=== PATIENT | female | born 1995 | race Caucasian/White ===

== ENCOUNTER 2016-11-12 09:04 | Emergency (ER) | payer OTHER ==
[~2016-11-12] VITALS: Ht 165.1 cm; Wt 90.7 kg
[~2016-11-12 09:04] MED LIST: AMOXICILLIN,AM875 MG PO; AMOXIL875 MG PO; AUGMENTIN XR1000 M1 PO; BACTRIM DS 8001 TA1 PO; CEFDINIR300 MG PO; COMPAZINE10 M1 PO; FLEXERIL10 MG PO; HYDROCODONE BIT1 T11 PO; KEFLEX500 MG PO; MACROBID100 M1 PO; MOTRIN800 MG PO; MYCOLOG-II 10001 CRE TP; NKHM; PERCOCET 325 MG1 TA7 PO; PREDNICOT20 MG PO; PREDNISONE10 MG PO; PRENATAL1 TA3 PO; TESSALON PERLE200 MG PO; ULTRAM50 MG PO; VIBRAMYCIN100 MG PO; VICODIN 5/500 505 MG PO; ZITHROMAX250 MG PO
[2016-11-12 09:08] VITALS: BP 130/70
[2016-11-12 09:45] LABS: BASO % 0.2 % (0.0-1.0); EOS # 0.1 10*3/uL (0.0-0.4); EOS % 0.5 % (1.0-4.0); HEMATOCRIT 39.9 % (37.0-47.0); HEMOGLOBIN 12.8 g/dl (12.0-16.0); LYMPH # 1.3 10*3/uL (1.3-4.4); LYMPH % 10.4 % (27.0-41.0); MEAN CELL VOLUME 87.1 fl (81.0-99.0); MEAN CORPUSCULAR HGB 27.9 pg (27.0-31.0); MEAN CORPUSCULAR HGB CONC 32.1 g/dl (33.0-37.0); MEAN PLATELET VOLUME 11.5 fl (9.6-12.3); MONO # 0.8 10*3/uL (0.1-1.0); MONO % 6.3 % (3.0-9.0); NEUT # 10.2 10*3/uL (2.3-7.9); NEUT % 82.3 % (47.0-73.0); PLATELET COUNT AUTOMATED 235 10*3/uL (130-400); RED BLOOD COUNT 4.58 10*6/uL (4.10-5.10); RED CELL DISTRI WIDTH 15.9 % (0-14.5); WHITE BLOOD COUNT 12.4 10*3/uL (4.8-10.8)
[2016-11-12 10:00] LABS: ALBUMIN 3.2 gm/dl (3.1-4.5); ALKALINE PHOSPHATASE 141 U/L (45-117); BILIRUBIN, TOTAL 0.4 mg/dl (0.2-1.0); BUN 5 mg/dl (7-24); CARBON DIOXIDE 26 mmol/L (21-32); CHLORIDE 104 mmol/L (98-107); EST GLOM FILT AFRICAN AMERICAN > 60 ml/min; GLUCOSE 95 mg/dL (65-99); POTASSIUM 3.9 mmol/L (3.5-5.1); SGOT/AST 78 IU/L (3-35); SGPT/ALT 94 U/L (12-78); SODIUM 138 mmol/L (136-145); TOTAL PROTEIN 7.8 gm/dL (6.4-8.2)
[2016-11-12] MEDS ORDERED: FLOMAX0.4 MG PO ×2 (11:24→11:25)
[2016-11-12] MEDS ORDERED: LEVAQUIN750 M1 PO (11:25)
== END 2016-11-12 11:39 | disposition home or self-care (01) ==
LOC: ED 09:04
PROVIDERS: Registered Nurse
DX: N12 Tubulo-interstitial nephritis, not specified as acute or chronic (principal); N20.0 Calculus of kidney; N93.9 Abnormal uterine and vaginal bleeding, unspecified; R94.5 Abnormal results of liver function studies; F17.200 Nicotine dependence, unspecified, uncomplicated

== ENCOUNTER 2017-01-02 13:06 | Emergency (ER) | payer OTHER ==
[~2017-01-02] VITALS: Ht 165.1 cm; Wt 90.7 kg
[~2017-01-02 13:06] MED LIST changes: +FLOMAX0.4 MG PO; +LEVAQUIN750 M1 PO
[2017-01-02 13:45] VITALS: BP 131/71
[2017-01-02] MEDS ORDERED: CORTISPORIN SUS10 ML OT (14:10)
== END 2017-01-02 14:22 | disposition home or self-care (01) ==
LOC: ED 13:06
DX: H60.92 Unspecified otitis externa, left ear (principal); R03.0 Elevated blood-pressure reading, without diagnosis of hypertension; J45.909 Unspecified asthma, uncomplicated; F17.200 Nicotine dependence, unspecified, uncomplicated

== ENCOUNTER 2017-02-04 11:49 | Emergency (ER) | payer OTHER ==
[~2017-02-04] VITALS: Ht 165.1 cm; Wt 90.7 kg
[~2017-02-04 11:49] MED LIST changes: +CORTISPORIN SUS10 ML OT
[2017-02-04 12:06] VITALS: BP 124/88
[2017-02-04] MEDS ORDERED: Motrin,Rufen800 MG PO (13:36)
[2017-02-04] MEDS ORDERED: CYCLOBENZAPRINE5 M3 PO (13:36)
== END 2017-02-04 13:40 | disposition home or self-care (01) ==
LOC: ED 11:49
DX: M54.16 Radiculopathy, lumbar region (principal); F17.200 Nicotine dependence, unspecified, uncomplicated

== ENCOUNTER 2018-12-05 22:05 | Emergency (ER) | payer OTHER ==
[~2018-12-05] VITALS: Ht 165.1 cm; Wt 73.7 kg
[~2018-12-05 22:05] MED LIST changes: +CYCLOBENZAPRINE5 M3 PO; +Motrin,Rufen800 MG PO
[2018-12-05 22:08] VITALS: BP 121/80
[2019-03-10] MEDS ORDERED: ZITHROMAX250 MG PO (20:08)
[2019-03-10] MEDS ORDERED: FLAGYL500 MG PO (20:08)
== END 2018-12-06 00:48 | disposition home or self-care (01) ==
LOC: ED 22:05
DX: S40.022A Contusion of left upper arm, initial encounter (principal); R07.81 Pleurodynia; F17.200 Nicotine dependence, unspecified, uncomplicated; W18.49XA Other slipping, tripping and stumbling without falling, initial encounter; Y93.89 Activity, other specified; Y92.89 Other specified places as the place of occurrence of the external cause; Y99.9 Unspecified external cause status

== ENCOUNTER 2019-03-07 09:39 | Emergency (ER) | payer OTHER ==
[~2019-03-07] VITALS: Ht 165.1 cm; Wt 72.6 kg
[2019-03-07 09:42] VITALS: BP 119/71
[2019-03-07 10:31] LABS: BILIRUBIN NEGATIVE (NEGATIVE); BLOOD NEGATIVE (NEGATIVE); CLARITY SL CLOUDY (CLEAR); COLOR YELLOW (YELLOW); GLUCOSE NEGATIVE (NEGATIVE); KETONE NEGATIVE (NEGATIVE); LEUKO ESTERASE 1+ (NEGATIVE); NITRITE NEGATIVE (NEGATIVE); PH 6.5 (5.0-9.0); SPECIFIC GRAVITY <= 1.005 (1.005-1.030); UROBILINOGEN 0.2 E.U./dl (0.2-1.0)
[2019-03-07 10:40] LABS: BACTERIA 1+; EPITHELIAL CELLS 16-20; WBC 21-30 wbc/hpf (0-5)
[2019-03-07] MEDS ORDERED: OMNICEF300 MG PO (10:48)
[2019-03-10 15:08] LABS: GONOCOCCUS BY NAA Positive (Negative)
[2019-03-10] MEDS ORDERED: ZITHROMAX250 MG PO (20:08)
[2019-03-10] MEDS ORDERED: FLAGYL500 MG PO (20:08)
== END 2019-03-07 10:54 | disposition home or self-care (01) ==
LOC: ED 09:39
PROVIDERS: Nurse Practitioner Family
DX: J02.9 Acute pharyngitis, unspecified (principal); N39.0 Urinary tract infection, site not specified; J45.909 Unspecified asthma, uncomplicated; Z20.2 Contact with and (suspected) exposure to infections with a predominantly sexual mode of transmission; Z32.02 Encounter for pregnancy test, result negative; Z79.899 Other long term (current) drug therapy

== ENCOUNTER 2019-03-12 10:20 | Emergency (ER) | payer OTHER ==
[~2019-03-12] VITALS: Ht 165.1 cm; Wt 72.6 kg
[~2019-03-12 10:20] MED LIST changes: +FLAGYL500 MG PO; +OMNICEF300 MG PO
[2019-03-12 10:27] VITALS: BP 111/74
[2019-03-12] MEDS ORDERED: FLAGYL500 MG PO (10:27)
== END 2019-03-12 10:59 | disposition home or self-care (01) ==
LOC: ED 10:20
DX: A59.01 Trichomonal vulvovaginitis (principal); A56.02 Chlamydial vulvovaginitis; A54.9 Gonococcal infection, unspecified